=== PATIENT | male | born 1950 | race Caucasian/White ===

== ENCOUNTER 2017-02-07 18:49 | Observation (INO) | payer MEDICARE ==
[2017-02-07] MEDS ORDERED: ASPIRIN CHEW 81 MG TABLET PO STA (19:03)
[2017-02-07] MEDS ORDERED: ASPIRIN CHEW 81 MG TABLET ONE (19:04)
[2017-02-07 19:14] LABS: BASOPHILS # (AUTO) 0.1 10^3/uL (0.0-0.1); BASOPHILS % (AUTO) 1.1 %; EOSINOPHILS # (AUTO) 0.2 10^3/uL (0.0-0.7); EOSINOPHILS % (AUTO) 2.5 %; HCT - HEMATOCRIT 44.6 % (42.0-52.0); HGB - HEMOGLOBIN 15.1 g/dL (14.0-18.0); LYMPHOCYTES # (AUTO) 3.2 10^3/uL (1.5-3.5); LYMPHOCYTES % (AUTO) 33.8 %; MEAN CORPUSCULAR HEMOGLOBIN 30.5 pg (27.0-31.0); MEAN CORPUSCULAR HGB CONC 33.8 g/dL (32.0-36.0); MEAN CORPUSCULAR VOLUME 90.3 fL (80.0-94.0); MEAN PLATELET VOLUME 7.6 fL (7.4-11.4); MONOCYTES # (AUTO) 0.8 10^3/uL (0.0-1.0); MONOCYTES % (AUTO) 8.5 %; NEUTROPHILS # (AUTO) 5.1 10^3/uL (1.5-6.6); NEUTROPHILS % (AUTO) 54.1 %; NUCLEATED RED BLOOD CELLS AUTO 0.1 /100WBC; RED BLOOD COUNT 4.94 10^6/uL (4.70-6.10); RED CELL DISTRIBUTION WIDTH 13.5 % (12.0-15.0); UNCORRECTED WHITE BLOOD COUNT 9.4 x10^3/uL; WHITE BLOOD COUNT 9.4 x10^3/uL (4.8-10.8)
[2017-02-07] MEDS ORDERED: MORPHINE 2 MG/ML SYRINGE IVP STA (19:15)
[2017-02-07] MEDS ORDERED: MORPHINE 2 MG/ML SYRINGE ONE (19:19)
--- NOTE | 2017-02-07 19:20 | ED Physician Documentation ---
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 No: Shortness of air, Diaphoresis, Vomiting, Feeling faint / dizzy, General Weakness, Palpitations Similar symptoms before: Diagnosis (states had a " normal" cardiac workup recently) Recently seen: Not recently seen Review of Systems Ten Systems: 10 systems reviewed and negative Constitutional: denies: Fever, Chills Throat: denies: Sore throat Respiratory: denies: Cough GI: denies: Abdominal Pain, Nausea, Vomiting, Diarrhea Skin: denies: Rash Musculoskeletal: denies: Neck pain, Back pain Neurologic: denies: Headache PD PAST MEDICAL HISTORY - Past Medical History Past Medical History: Yes Cardiovascular: High cholesterol - Present Medications Home Medications: Ambulatory Orders Medication Instructions Recorded Confirmed Cholesterol Med 0 mg DAILY 02/07/17 - Allergies Allergies/Adverse Reactions: Allergies Allergy/AdvReac Type Severity Reaction Status Date / Time No Known Drug Allergies Allergy Verified 02/07/17 18:58 PD ED PE NORMAL - Vitals Vital signs reviewed: Yes - General General: Alert and oriented X 3, No acute distress - HEENT HEENT: Moist mucous membranes - Neck Neck: Supple, no meningeal sign, No JVD, No bruit - Cardiac Cardiac: RRR, No murmur, Strong equal pulses - Respiratory Respiratory: No respiratory distress, Clear bilaterally - Abdomen Abdomen: Soft, Non tender, Non distended - Derm Derm: Warm and dry - Extremities Extremities: No edema, No calf tenderness / cord - Neuro Neuro: Alert and oriented X 3 - Psych Psych: Normal mood, Normal affect Results - Vitals Vitals: Vital Signs - 24 hr 02/07/17 02/07/17 02/07/17 18:50 19:17 19:26 Temperature 36.6 C Heart Rate 60 57 L Respiratory 14 16 Rate Blood Pressure 162/110 H 179/96 H O2 Saturation 100 99 02/07/17 02/07/17 02/07/17 19:48 20:26 20:47 Temperature Heart Rate 51 L 50 L 53 L Respiratory 12 18 15 Rate Blood Pressure 150/89 H 132/75 H 131/78 H O2 Saturation 97 97 97 02/07/17 21:04 Temperature 36.4 C L Heart Rate 48 L Respiratory 18 Rate Blood Pressure 123/77 O2 Saturation 96 Oxygen O2 Source Room air - EKG (time done) 1927 Rate: Rate (enter#) (55) Rhythm: NSR [place]: LAD Intervals: Normal CA QRS: Normal Ischemia: Normal ST segments Computer interpretation: Agree with computer 1901 Rate: Rate (enter#) (64) Rhythm: NSR [place]: LAD Ischemia: Other (poss ST elevation, artifact hinders interpretation) - Labs Labs: Laboratory Tests 02/07/17 02/07/17 02/07/17 19:04 19:04 19:04 WBC 9.4 RBC 4.94 Hgb 15.1 Hct 44.6 MCV 90.3 MCH 30.5 MCHC 33.8 RDW 13.5 Plt Count 265 MPV 7.6 Neut # 5.1 Lymph # 3.2 [place] # 0.8 Eos # 0.2 Baso # 0.1 Absolute Nucleated RBC 0.01 Nucleated RBCs 0.1 Sodium 139 Potassium 3.5 Chloride 102 Carbon Dioxide 29 Anion Gap 8.0 BUN 18 Creatinine 1.0 Estimated GFR (MDRD) 74 L Glucose 94 Calcium 9.3 Total Bilirubin 0.8 AST 33 ALT 37 Alkaline Phosphatase 57 Troponin I < 0.04 Total Protein 7.4 Albumin 4.6 Globulin 2.8 Albumin/Globulin Ratio 1.6 Lipase 38 - Rads (name of study) cxr Radiology: Prelim report reviewed, EMP read contemporaneously, See rad report ( normal) PD MEDICAL DECISION MAKING - ED course Complexity details: reviewed results, re-evaluated patient, considered differential (No ST elevation UT, no aortic dissection, no PE, no tension pneumothorax, no aortic aneurysm), d/w patient, d/w family, 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 No acute findings on EKG. Negative initial troponin. Negative chest x-ray. And resolved with aspirin and morphine. Did not recur in the emergency department. Discussed the case with Dr. De León, the hospitalist who accepts the patient for rule out UT. 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 This document was made in part using voice recognition software. While efforts are made to proofread this document, sound alike and grammatical errors may occur. Departure - Departure Disposition: ED Place in Observation Clinical Impression: Chest pain Qualifiers: Chest pain type: unspecified Qualified Code(s): R07.9 - Chest pain, unspecified Condition: Good Discharge Date/Time: 02/07/17 21:33
[2017-02-07 19:29] LABS: ALBUMIN/GLOBULIN RATIO 1.6 (1.0-2.2); BILIRUBIN,TOTAL 0.8 mg/dL (0.2-1.0); CALCIUM 9.3 mg/dL (8.5-10.3); POTASSIUM 3.5 mmol/L (3.5-5.0); TOTAL PROTEIN 7.4 g/dL (6.7-8.2)
--- NOTE | 2017-02-07 19:58 | XRAY Preliminary Report ---
Exam: XR Chest 1 View IMPRESSION: Normal single view chest. [facility] SITE ID: [id number]
--- NOTE | 2017-02-07 20:08 | XRAY Report ---
EXAM: CHEST RADIOGRAPHY EXAM DATE: 02/07/2017 07:28 PM. CLINICAL HISTORY: Chest pain. Nonsmoker. COMPARISON: None. TECHNIQUE: 1 view. FINDINGS: Lungs/Pleura: No focal opacities evident. No pleural effusion. No pneumothorax. Mediastinum: Within exam limitations, cardiomediastinal contour is normal. Other: None. IMPRESSION: Normal single view chest. [facility] Referring Provider Line: [phone] SITE ID: [id number]
[2017-02-07] MEDS ORDERED: SODIUM CHLORIDE FLUSH 0.9% 10 ML SYRINGE IVP PRN (21:14)
[2017-02-07] MEDS ORDERED: ACETAMINOPHEN 325 MG TABLET PO PRN (21:14)
[2017-02-07] MEDS ORDERED: ONDANSETRON ODT 4 MG TABLET TL PRN (21:14)
[2017-02-07] MEDS ORDERED: MORPHINE 2 MG/ML SYRINGE IVP PRN (21:19)
[2017-02-07] MEDS ORDERED: NITROGLYCERIN SL 0.4 MG TABLET SL PRN (21:19)
[2017-02-07] MEDS ORDERED: SODIUM CHLORIDE FLUSH 0.9% 10 ML SYRINGE IVP SCH (22:00)
[2017-02-08] MEDS ORDERED: HEPARIN 5,000 UNIT/ML VIAL IVP ONE (03:00)
[2017-02-08] MEDS ORDERED: HEPARIN 25,000 UNITS/500 ML 500 ML IV ONE (03:04)
[2017-02-08 04:38] LABS: CHOL/HDL RATIO 3.1 (<5.0); CHOLESTEROL 115 mg/dL; HDL CHOLESTEROL 37 mg/dL; LDL/HDL RATIO 1.8 (<3.6); TRIGLYCERIDES 67 mg/dL; VLDL CHOLESTEROL 13 mg/dL
--- NOTE | 2017-02-08 05:07 | DISCHARGE SUMMARY ---
DATE OF ADMISSION: 02/07/2017 DATE OF DISCHARGE: 02/08/2017 TRANSFER SUMMARY DISPOSITION: Patient is being transferred to [facility] to the emergency department there for further triage to Cardiology. ACCEPTING PHYSICIAN: ER physician [facility]. CONDITION AT TRANSFER: Stable. HOSPITAL COURSE: Please see H and P for details of admission. Patient is a 67- year-old male who came in with approximately 45 minutes of chest pain. First troponin was less than 0.04. He has remained chest pain free; however, second troponin was 6.11. Comparing EKG at admission to EKG currently, he did have some hyperacute-appearing T waves anteriorly, which are now normalized. In fact , he does now have biphasic T's in V2 and a small T-wave inversion in V1 relative to admission EKG. Of note, there were no prior EKGs for comparison. Patient was started on IV heparin drip for cardiac protocol prior to transfer. He was not actively having chest pain, hence nitroglycerin drip was not initiated. Meds upon transfer: iv heparin drip cardiac protocol PHYSICAL EXAMINATION AT DISCHARGE VITAL SIGNS: Stable. Afebrile. CHEST: Clear to auscultation. COR: Regular rate and rhythm. S1, S2. ABDOMEN: Soft, nontender. Bowel sounds present. EXTREMITIES: No pedal edema. Time spent in transfer 60 minutes. JOB #: [id number] EXT JOB #:[id number] MTDD
[2017-02-08 06:22] VITALS: BP 128/74
--- NOTE | 2017-02-08 07:41 | HISTORY & PHYSICAL EXAMINATION ---
DATE OF ADMISSION: 02/07/2017 PRIMARY CARE PROVIDER: Wenceslao Gross MD, [facility]. CHIEF COMPLAINT: Chest pain. HISTORY OF PRESENT ILLNESS: This is a 67-year-old male who today was sitting and watching TV and dev eloped some substernal chest pressure with radiation down his arm. He denies any lightheadedness, den ies any shortness of breath with it, denies any nausea or vomiting. He presented to the ER. EKG did not show any acute changes. He was given ASA 324 mg p.o. x1, and it resolved with morphine sulfate 4 mg IV with resolution in his symptoms; lasted approximately a total of 45 minutes. He notes similar episodes in the past; at times he would be lightheaded with them and in fact he had a cardiology eval uation by a prevention coordinator in [place], does not recall the name, through [facility] [employer], with negative w orkup, per his report. Patient's labs showed a troponin, initial, of less than 0.04. PAST MEDICAL HISTORY: Hyperlipidemia. MEDICATIONS UPON ADMISSION: Statin, unknown which one, unknown dose daily. ALLERGIES: NO KNOWN DRUG ALLERGIES. SOCIAL HISTORY: Smoking: Currently none, quit 4 years ago; does ingest marijuana maybe twice a week. Alcohol: One glass of wine per week. FAMILY MEDICAL HISTORY: No significant cardiac disease. REVIEW OF SYSTEMS: All other review of systems reviewed and are negative except as in the HPI. PHYSICAL EXAMINATION VITAL SIGNS: Temperature is afebrile, heart rate 53, blood pressure 131/78, respiratory rate 15, concha m air sat 97%. CONSTITUTIONAL: A middle-aged male in no acute distress. HEENT: Normocephalic, atraumatic. Eyes: PERRLA-DC, EOMI. Mouth: No lesions. NECK: No adenopathy. Carotids 2+/4 without bruits. CHEST: Clear to auscultation. COR: Regular rate and rhythm. S1, S2 without murmur. ABDOMEN: Soft, nontender, bowel sounds present. EXTREMITIES: Exam reveals no pedal edema. SKIN: No rashes. PSYCHOLOGIC: Mood and affect are appropriate. NEUROLOGIC: Alert and oriented x3. Motor strength is intact bilaterally. LABORATORY Sodium 139, potassium 3.5, chloride 102, bicarb 29, BUN 18, creatinine 1.0, calculated GFR 74, glucos e 94, calcium 9.3, total bilirubin 0.8, AST 33, ALT 37, alkaline phosphatase 57, troponin less than 0 .04. Total protein 7.4, albumin 4.6, lipase 38. White count 9.4, hemoglobin 15.1, hematocrit 44.6, MCV 90.3, platelets 265 with 5.1 polys. EKG: Sinus at a rate of 64, left axis deviation. No old EKGs for comparison. ASSESSMENT AND PLAN 1. Episode of chest pain, acute, present on admission. Go ahead and check serial troponins, nitrogl ycerin p.r.n., morphine sulfate IV p.r.n. It is reassuring that patient had similar symptoms in the past with, by his report, a negative cardiological workup. 2. Hyperlipidemia, chronic; is on a statin, does not know the name it. Check fasting lipid panel to ulloa morning. 3. Deep venous thrombosis prophylaxis. Use SCDs. 4. Code status: Patient is FULL CODE. Time spent 60 minutes. JOB #: [id number] EXT JOB #:[id number]
[2017-02-08] MEDS ORDERED: POLYETHYLENE GLYCOL 3350 17 GM PACKET PO SCH (09:00)
== END 2017-02-08 04:20 | disposition short-term general hospital (02) ==
LOC: ED 18:49 → MS 21:14
PROVIDERS: ADMIT Specialist; ATTEND Specialist
DX: I21.4 Non-ST elevation (NSTEMI) myocardial infarction (principal); E78.5 Hyperlipidemia, unspecified; Z87.891 Personal history of nicotine dependence
CPT/HCPCS: 36415; 71010; 80053; 80061; 83690; 84484; 85025; 93005; 96374; 99284; 99285; A9270; G0378

== ENCOUNTER 2017-02-08 04:24 | Outpatient (CLI) | payer MEDICARE | END 2017-02-08 04:25 | disposition short-term general hospital (02) | LOC: EMS 04:24 | PROVIDERS: ATTEND Surgery | DX: R07.9 Chest pain, unspecified (principal) | CPT/HCPCS: A0425; A0426 ==

== ENCOUNTER 2017-03-03 07:59 | Outpatient (CLI) | payer MEDICARE | END 2017-03-03 08:00 | disposition home or self-care (01) | LOC: DI 07:59 | PROVIDERS: ATTEND Internal Medicine Cardiovascular Disease | DX: I25.118 Atherosclerotic heart disease of native coronary artery with other forms of angina pectoris (principal); I25.10 Atherosclerotic heart disease of native coronary artery without angina pectoris; I21.3 ST elevation (STEMI) myocardial infarction of unspecified site; J43.9 Emphysema, unspecified; Z87.891 Personal history of nicotine dependence; Z95.5 Presence of coronary angioplasty implant and graft | CPT/HCPCS: 93306 ==

== ENCOUNTER 2018-09-16 11:59 | Emergency (ER) | payer MEDICARE ==
[2018-09-16 12:08] VITALS: BP 133/83
--- NOTE | 2018-09-16 13:00 | ED Physician Documentation ---
PD HPI ANIMAL BITE - Stated complaint Stated Complaint: DOG BITE L HAND - Chief complaint Chief Complaint: Laceration - History obtained from History obtained from: Patient - History of Present Illness Location of injury(ies): Left hand Details of the event: Dog, Pet animal, Well appearing, Immunized, Provoked (he was petting/playing with the dog and it bit hit hand.), Animal can be observed Timing - onset: Today Timing - details: Abrupt onset Worsened by: Palpating. No: Moving Associated symptoms: No: Weakness, Numbness Similar symptoms before: Has not had sx before Review of Systems Neurologic: denies: Focal weakness, Numbness Immunocompromised: denies: Immunocompromised PD PAST MEDICAL HISTORY - Past Medical History Cardiovascular: High cholesterol - Past Surgical History Past Surgical History: Yes Neuro: Craniotomy - Present Medications Home Medications: Ambulatory Orders Medication Instructions Recorded Confirmed Cholesterol Med 0 mg DAILY 02/07/17 Amox/Clav 875/125 [Augmentin] 1 each PO Q12H #10 tablet 09/16/18 - Allergies Allergies/Adverse Reactions: Allergies Allergy/AdvReac Type Severity Reaction Status Date / Time No Known Drug Allergies Allergy Verified 09/16/18 12:08 - Social History Does the pt smoke?: No Smoking Status: Never smoker PD ED PE NORMAL - Vitals Vital signs reviewed: Yes - General General: Alert and oriented X 3, No acute distress, Well developed/nourished - Derm Derm: Normal color, Warm and dry - Extremities Extremities: Other (left hand with bite and lac palmar soft tissue at area between 4th and 5th MC heads. 1.5 cm to fatty tissue without FB. Normal sensation at fingers and good flexion of fingers without pain. normal cap refill and color in fingers. ) - Neuro Neuro: No motor deficit, No sensory deficit Results - Vitals Vitals: Oxygen O2 Source Room air Procedures - Laceration (location) left ahnd Length in cm: 1.5 Wound type: Into subcut fat, Clean Neurovascular status: Sensory intact, Motor intact, Vascular intact Tendon involvement: Tendon intact Anesthesia: Lidocaine 1% with epi Wound Preparation: Irrigated copiously NS, Wound explored, To the base. No: FB identified Skin layer closure: Running, Size #-0 - enter number (4) Other: Patient tolerated well, No complications, Neurovascular intact, Dressing applied, Tetanus UTD Complexity: Simple PD MEDICAL DECISION MAKING - ED course Complexity details: considered differential (large enough lac for suturing. Goes to fatty tissue, no deep structures seen and has normal hand/finger function. ), d/w patient Departure - Departure Disposition: 01 Home, Self Care Clinical Impression: Dog bite of hand Qualifiers: Encounter type: initial encounter Laterality: right Qualified Code(s): S61.451A - Open bite of right hand, initial encounter Condition: Stable Record reviewed to determine appropriate education?: Yes Instructions: ED Laceration Hand Prescriptions: Amox/Clav 875/125 [Augmentin] 1 each PO Q12H #10 tablet Comments: It is okay to wash and shower. Clean off the wound twice a day with soap and water, or peroxide and water. Apply some antibiotic ointment to it to keep it moist. Also to watch for signs of infection such as purulence, redness or increasing pain. Return to your primary care or the ER at the specified time for suture removal. Suture removal 8-10 days. Tylenol or ibuprofen if needed for pains. Augmentin twice daily for 5 days to reduce the chance of infection. Light to normal use of the hand is fine with the stitches. Discharge Date/Time: 09/16/18 13:30
[2018-09-16] MEDS ORDERED: AMOX/CLAV 875 MG/125 MG TABLET PO STA (13:21)
[2018-09-16] MEDS ORDERED: ACETAMINOPHEN 325 MG TABLET PO STA (13:21)
== END 2018-09-16 13:30 | disposition home or self-care (01) ==
LOC: ED 11:59
DX: S61.452A Open bite of left hand, initial encounter (principal); W54.0XXA Bitten by dog, initial encounter; E78.00 Pure hypercholesterolemia, unspecified
CPT/HCPCS: 12001; 99283; A9270

== ENCOUNTER 2019-04-24 15:00 | Outpatient (CLI) | payer MEDICARE ==
--- NOTE | 2019-04-26 08:33 | DEXA Report ---
Reason: OSTEOPOROSIS Procedure Date: 04/24/2019 Accession Number: [id number] / [id number] Procedure: DEX - Dexa Spine and/or Hip CPT Code: FULL RESULT: EXAM: Dexa Spine and/or Hip DATE: 04/24/2019 3:37 PM CLINICAL HISTORY: OSTEOPOROSIS TECHNIQUE: Dual energy x-ray absorptiometry (DXA) was performed on a [employer] System. Regions measured are the AP Spine, femoral neck, and if needed forearm. COMPARISON: None. In accordance with the International Society for Clinical Densitometry (ISCD) guidelines, data from previous exams may be reanalyzed using current recommendations and techniques. This is done to allow a more accurate basis for comparison with the current study. FINDINGS: The data for the lumbar spine is as follows: BMD (g/cm/cm) T-SCORE Z-SCORE REGION L1 0.955 -1.7 -0.6 L2 0.941 -2.5 -1.4 L3 0.938 -2.5 -1.4 L4 0.903 -2.8 -1.7 TOTAL 0.932 -2.4 -1.3 NOTE: All evaluable vertebrae are used for classification The data for the hip is as follows: BMD (g/cm/cm) T-SCORE Z-SCORE REGION Neck 0.696 -2.9 -1.2 TOTAL 0.675 -3.0 -1.9 NOTE: The femoral neck or total proximal femur, whichever is lowest, is used for classification. IMPRESSION: THE WHO CLASSIFICATION BASED ON THE INTERNATIONAL REFERENCE STANDARD IS OSTEOPOROSIS. THE FRACTURE RISK IS HIGH. RECOMMENDATION: Patients with diagnosis of osteoporosis or osteopenia should have regular bone mineral density assessment. For those eligible for Medicare, routine testing is allowed once every 2 years. Testing frequency can be increased for patients who have rapidly progressing disease or for those who are receiving medical therapy to restore bone mass. COMMENT: World Health Organization (WHO) definitions for osteoporosis and osteopenia: NORMAL BMD: T-score at -1.0 or higher, fracture risk is low OSTEOPENIA BMD: T-score between -1.0 and -2.5, fracture risk is increased. OSTEOPOROSIS BMD: T-score at -2.5 or lower, fracture risk is high. National Osteoporosis Foundation recommends: 1. Obtain adequate dietary calcium (at least 1200 mg per day) and vitamin D (400-800 international units per day). 2. Participate, as appropriate, in regular weightbearing and muscle-strengthening exercise. 3. Avoid tobacco use and reduce alcohol and caffeine intake. 4. For more detailed information see the website at www.NOF.org.
== END 2019-04-24 15:01 | disposition home or self-care (01) ==
LOC: DI 15:00
PROVIDERS: ATTEND Internal Medicine
DX: M81.0 Age-related osteoporosis without current pathological fracture (principal)
CPT/HCPCS: 77080